=== PATIENT | male | born 1965 | race Caucasian/White ===

== ENCOUNTER 2017-05-12 07:59 | Day surgery (SDC) | payer OTHER ==
[2017-05-12 08:36] VITALS: BP 126/81
[2017-05-12] MEDS ORDERED: LACTATED RINGERS 1,000 ML IV SCH (09:02)
[2017-05-12] MEDS ORDERED: BUPIVACAINE/PF-EPI 0.5% 1:200K ONE (09:13)
[2017-05-12] MEDS ORDERED: PLEASE ENTER HEIGHT AND WEIGHT MC SCH ×2 (09:30→10:30)
[2017-05-12] MEDS ORDERED: FENTANYL PF 100 MCG/2ML ONE ×3 (09:42→11:14)
[2017-05-12] MEDS ORDERED: MIDAZOLAM 1 MG/ML, 2ML ONE (09:42)
[2017-05-12] MEDS ORDERED: METF10002 PO (09:42)
[2017-05-12] MEDS ORDERED: METFORM (09:42)
[2017-05-12] MEDS ORDERED: CEFAZOLIN 1,000 MG ONE (09:46)
[2017-05-12] MEDS ORDERED: PROPOFOL 10 MG/ML, 20ML ONE (09:46)
[2017-05-12] MEDS ORDERED: DEXAMETHASONE 4 MG/ML, 1ML ONE (09:46)
[2017-05-12] MEDS ORDERED: ONDANSETRON 2MG/ML, 2ML ONE (09:46)
[2017-05-12 09:51] LABS: ASPARTATE AMINO TRANSFERASE 16 U/L (15-37); BLOOD UREA NITROGEN 17 mg/dL (7-18)
[2017-05-12] MEDS ORDERED: hydrALAzine 20 MG/ML, 1ML IV PRN (10:30)
[2017-05-12] MEDS ORDERED: MEPERIDINE/PF 25MG/0.5ML IVPush PRN (10:30)
[2017-05-12] MEDS ORDERED: ACETAMINOPHEN 325 MG TABLET PO PRN (10:30)
[2017-05-12] MEDS ORDERED: HYDROmorphone 1 MG/ML, 1ML IV PRN (10:30)
[2017-05-12] MEDS ORDERED: OXYcodone 5 MG/5 ML ORAL.SOL UDC PO PRN (10:30)
[2017-05-12] MEDS ORDERED: PROMETHAZINE 25 MG/ML, 1ML IV PRN (10:30)
[2017-05-12] MEDS ORDERED: LABETALOL 5MG/ML, 20ML IV PRN (10:30)
[2017-05-12] MEDS ORDERED: OXYcodone 5 MG/5 ML ORAL.SOL UDC ONE (11:14)
[2017-05-12] MEDS: FENTANYL PF 100 MCG/2ML IV PRN ×2 (11:16→11:24)
[2017-05-12] MEDS ORDERED: ACETAMINOPHEN 650 MG/20.3 ML UDC ONE (11:24)
== END 2017-05-12 12:50 ==
LOC: OUT 07:59
PROVIDERS: ATTEND Orthopaedic Surgery
DX: M79.5 Residual foreign body in soft tissue (principal); E11.9 Type 2 diabetes mellitus without complications; F17.200 Nicotine dependence, unspecified, uncomplicated; Z87.891 Personal history of nicotine dependence
CPT/HCPCS: 25035; 36415; 73120; 76001; 80053; 82962; 93005; J0690; J1100; J2250; J2405; J2704; J3010